=== PATIENT | male | born 1955 | race Caucasian/White ===

== ENCOUNTER → 2025-01-12 | Outpatient (CLI) | payer MEDICARE ==
[~2025-01-12] MED LIST: DOXE10 PO; GABA100 PO; OMEP20ER PO; Synthroid200 MCG PO; TRAZ50 PO
== END ==
LOC: LAB 07:58 → LAB SHORT 07:58
DX: S81.801A Unspecified open wound, right lower leg, initial encounter (principal)
CPT/HCPCS: 87070; 87077; 87186; 87205